=== PATIENT | female | born 1965 | race Caucasian/White ===

== ENCOUNTER 2016-06-11 07:31 | Emergency (ER) | payer OTHER ==
[2016-06-11] MEDS ORDERED: Ondansetron INJ* 2 MG/ML VIAL IV ONE ×2 (08:15→10:34)
[2016-06-11] MEDS ORDERED: Morphine INJ* 4 MG/ML 1 ML CARPUJECT IV ONE ×3 (08:15→14:07)
[2016-06-11] MEDS ORDERED: NS 0.9% 1000 ML* 1,000 ML IV ONE (08:16)
[2016-06-11 08:46] LABS: Hematocrit 43 % (35-47); Hemoglobin 14.7 g/dl (12.0-16.0); Mean Corpuscular HGB Conc 34 g/dl (31-36); Mean Corpuscular Hemoglobin 30 pg (27-31); Mean Corpuscular Volume 88 fL (80-97); Mean Platelet Volume 7 um3 (7.4-10.4); Red Blood Count 4.93 10^6/ul (4.0-5.4); Red Cell Distribution Width 13 % (10.5-15); White Blood Count 15.7 10^3/ul (3.5-10.8)
[2016-06-11 08:56] LABS: Albumin 4.2 g/dL (3.2-5.2); BUN/Creatinine Ratio 14.4 (8-20); C Reactive Protein 38.48 mg/L (< 5.00); Calcium 9.5 mg/dL (8.6-10.3); EGFR African American 84.9 (>60); Globulin 3.4 g/dL (2-4); Potassium 3.3 mmol/L (3.5-5.0); Total Bilirubin 1.6 mg/dL (0.2-1.0); Total Protein 7.6 g/dL (6.4-8.9)
[2016-06-11 09:06] LABS: Urine Bacteria Absent (Absent); Urine Bilirubin Negative (Negative); Urine Glucose Negative (Negative); Urine Nitrite Negative (Negative)
--- NOTE | 2016-06-11 10:54 | RAD ---
HISTORY: Right upper quadrant pain COMPARISONS: October 21, 2014 TECHNIQUE: Multiple transverse and longitudinal ultrasound images were obtained of the right upper quadrant of the abdomen using grayscale and color Doppler imaging. FINDINGS: LIVER: The liver is normal in shape, size, contour, and echogenicity. There are no focal parenchymal masses. There is normal hepatopedal flow of the portal vein on Doppler imaging. BILIARY TREE: There is intrahepatic and extrahepatic biliary dilatation. The common duct measures 1.1 cm. A calculus is noted within the common duct. A biliary stent is noted GALLBLADDER: The gallbladder is distended. Multiple shadowing echogenic foci consistent with gallstones are noted. There is no gallbladder wall thickening or pericholecystic fluid. Positive sonographic Pruett sign is reported.. PANCREAS: The head of the pancreas is unremarkable. The tail of the pancreas is not well visualized secondary to overlying bowel gas. The pancreatic duct measures up to 0.3 cm. RIGHT KIDNEY: The right kidney is normal in shape, size, contour, and echogenicity. There is no hydronephrosis or nephrolithiasis. The right kidney measures 11.2 x 4.1 x 5.7 cm. AORTA AND IVC: The aorta and IVC are unremarkable. FLUID: There are no pleural effusions. There is no free fluid within the hepatorenal recess. OTHER FINDINGS: None. IMPRESSION: 1. BILIARY DILATATION WITH CHOLELITHIASIS AND CHOLEDOCHOLITHIASIS. 2. A SONOGRAPHIC PRUETT SIGN IS REPORTED, WITHOUT GALLBLADDER WALL THICKENING OR PERICHOLECYSTIC FLUID. THIS IS INDETERMINATE FOR THE SONOGRAPHIC FEATURES OF ACUTE CHOLECYSTITIS.
[2016-06-11] MEDS ORDERED: Acetaminophen TAB* 325 MG PO ONE (12:06)
[2016-06-11] MEDS ORDERED: Piperac/Tazob 3.375 gm in NS* 3.375 GM/100 ML BAG IVPB ONE (12:06)
--- NOTE | 2016-06-11 14:02 | ED ---
Lemuel Clements Billy, scribed for Arnaldo Bowen MD on 06/11/16 at 0812 . Abdominal Pain/Female - HPI Summary HPI Summary: Patient is a 50 year-old female coming to [facility] presenting with intermittent epigastric pain starting 3 days ago. Pain severity 7/10. She reports decreased PO intake, nausea, and vomiting. She also had 2x episodes of diarrhea, but she believes this is related to her IBS rather than her chief complaint today. Patient is concerned that her symptoms today are related to her gallbladder. - History of Current Complaint Chief Complaint: EDAbdPain Stated Complaint: VOMITING/ABD PAIN Time Seen by Provider: 06/11/16 07:49 Hx Obtained From: Patient Onset/Duration: Gradual Onset, Lasting Days, Still Present Timing: Intermittent Episode Lasting Severity Initially: Moderate Severity Currently: Moderate Pain Intensity: 7 Pain Scale Used: 0-10 Numeric Location: Epigastric Radiates: No Aggravating Factor(s): Food Alleviating Factor(s): Nothing Associated Signs and Symptoms: Positive: Nausea, Vomiting, Diarrhea Allergies/Adverse Reactions: Allergies Allergy/AdvReac Type Severity Reaction Status Date / Time No Known Allergies Allergy Verified 06/11/16 07:34 PMH/Surg Hx/FS Hx/Imm Hx Endocrine/Hematology History: Reports: Hx Thyroid Disease - hypothyroid d/t partial thyroidectomy Denies: Hx Diabetes Cardiovascular History: Denies: Hx Congestive Heart Failure, Hx Hypertension, Hx Pacemaker/ICD Respiratory History: Reports: Hx Sleep Apnea GI History: Reports: Hx Irritable Bowel, Hx Obstructive Bowel, Other GI Disorders - cholelithiasis Denies: Hx Cirrhosis, Hx Crohn's Disease, Hx Diverticulosis, Hx Gall Bladder Disease, Hx Gastroesophageal Reflux Disease, Hx Gastrointestinal Bleed, Hx Hiatal Hernia, Hx Jaundice, Hx Ileostomy, Hx Pyloric Stenosis, Hx Ulcer History: Denies: Hx Renal Disease Sensory History: Reports: Hx Contacts or Glasses Denies: Hx Cataracts, Hx Eye Injury, Hx Eye Prosthesis, Hx Glaucoma, Hx Legally Blind, Hx Macular Degeneration, Hx Vision Problem, Hx Deafness, Hx Hearing Aid, Hx Hearing Problem, Other Sensory Impairments Opthamlomology History: Reports: Hx Contacts or Glasses Denies: Hx Cataracts, Hx Eye Injury, Hx Eye Prosthesis, Hx Glaucoma, Hx Legally Blind, Hx Macular Degeneration, Hx Vision Problem, Other Sensory Impairments Neurological History: Reports: Hx Migraine Psychiatric History: Reports: Hx Depression Denies: Hx Panic Disorder - Cancer History Cancer Type, Location and Year: GOITER REMOVED 2010 - Surgical History Surgery Procedure, Year, and Place: 1968 inguinal hernia, D&C 1999; thyroidectomy x 2 2009; 2010 exploratory Sx, several abdominal surgeries between 2698-4392--> colon resection Infectious Disease History: No Infectious Disease History: Denies: Hx Clostridium Difficile, Hx Hepatitis, Hx Tuberculosis - Positive PPD, negative chest X-ray, 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, History Other Infectious Disease, Traveled Outside the [place] in Last 30 Days - Family History Known Family History: Positive: Hypertension, Diabetes, Renal Disease - Social History Alcohol Use: Occasionally Substance Use Type: Reports: None Smoking Status (MU): Light Every Day Tobacco Smoker Type: Cigarettes Amount Used/How Often: 1/3 ppd Length of Time of Smoking/Using Tobacco: 10 years Have You Smoked in the Last Year: Yes Review of Systems Negative: Fever Positive: Abdominal Pain, Vomiting, Diarrhea, Nausea All Other Systems Reviewed And Are Negative: Yes Physical Exam Triage Information Reviewed: Yes Vital Signs On Initial Exam: Initial Vitals Temp Pulse Resp BP Pulse Ox 98.7 F 93 17 136/85 100 06/11/16 07:34 06/11/16 07:34 06/11/16 07:34 06/11/16 07:34 06/11/16 07:34 Vital Signs Reviewed: Yes Appearance: Positive: Well-Appearing, No Pain Distress Skin: Positive: Warm, Skin Color Reflects Adequate Perfusion, Dry Head/Face: Positive: Normal Head/Face Inspection Eyes: Positive: Normal Neck: Positive: Supple, Nontender Respiratory/Lung Sounds: Positive: Clear to Auscultation, Breath Sounds Present Cardiovascular: Positive: RRR Abdomen Description: Positive: Soft, Other: - Tender epigastrium Musculoskeletal: Positive: Normal Neurological: Positive: Normal Psychiatric: Positive: Normal, Affect/Mood Appropriate AVPU Assessment: Alert Diagnostics - Vital Signs Vital Signs Temp Pulse Resp BP Pulse Ox 06/11/16 07:34 98.7 F 93 17 136/85 100 - Laboratory Lab Results: Lab Results 06/11/16 06/11/16 06/11/16 Range/Units 07:55 07:55 07:55 WBC 15.7 H (3.5-10.8) 10^3/ul RBC 4.93 (4.0-5.4) 10^6/ul Hgb 14.7 (12.0-16.0) g/dl Hct 43 (35-47) % MCV 88 (80-97) fL MCH 30 (27-31) pg MCHC 34 (31-36) g/dl RDW 13 (10.5-15) % Plt Count 290 (150-450) 10^3/ul MPV 7 L (7.4-10.4) um3 Neut % (Auto) 91.4 H (38-83) % Lymph % (Auto) 3.2 L (25-47) % Mckenzie % (Auto) 5.2 (1-9) % Eos % (Auto) 0 (0-6) % Baso % (Auto) 0.2 (0-2) % Absolute Neuts (auto) 14.4 H (1.5-7.7) 10^3/ul Absolute Lymphs (auto) 0.5 L (1.0-4.8) 10^3/ul Absolute Monos (auto) 0.8 (0-0.8) 10^3/ul Absolute Eos (auto) 0 (0-0.6) 10^3/ul Absolute Basos (auto) 0 (0-0.2) 10^3/ul Absolute Nucleated RBC 0 10^3/ul Nucleated RBC % 0 Sodium 134 (133-145) mmol/L Potassium 3.3 L (3.5-5.0) mmol/L Chloride 103 (101-111) mmol/L Carbon Dioxide 22 (22-32) mmol/L Anion Gap 9 (2-11) mmol/L BUN 13 (6-24) mg/dL Creatinine 0.90 (0.51-0.95) mg/dL Est GFR ( Amer) 84.9 (>60) Est GFR (Non-Af Amer) 66.0 (>60) BUN/Creatinine Ratio 14.4 (8-20) Glucose 106 H (70-100) mg/dL Lactic Acid 0.8 (0.5-2.0) mmol/L Calcium 9.5 (8.6-10.3) mg/dL Total Bilirubin 1.60 H (0.2-1.0) mg/dL AST 159 H (13-39) U/L ALT 93 H (7-52) U/L Alkaline Phosphatase 357 H (34-104) U/L C-Reactive Protein 38.48 H (< 5.00) mg/L Total Protein 7.6 (6.4-8.9) g/dL Albumin 4.2 (3.2-5.2) g/dL Globulin 3.4 (2-4) g/dL Albumin/Globulin Ratio 1.2 (1-3) Lipase 17 (11.0-82.0) U/L Urine Color Urine Appearance Urine pH (5-9) Ur Specific Colliers (1.010-1.030) Urine Protein (Negative) Urine Ketones (Negative) Urine Blood (Negative) Urine Nitrate (Negative) Urine Bilirubin (Negative) Urine Urobilinogen (Negative) Ur Leukocyte Esterase (Negative) Urine WBC (Auto) (Absent) Urine RBC (Auto) (Absent) Ur Squamous Epith Cells (Absent) Urine Bacteria (Absent) Urine Glucose (Negative) 06/11/16 Range/Units 08:36 WBC (3.5-10.8) 10^3/ul RBC (4.0-5.4) 10^6/ul Hgb (12.0-16.0) g/dl Hct (35-47) % MCV (80-97) fL MCH (27-31) pg MCHC (31-36) g/dl RDW (10.5-15) % Plt Count (150-450) 10^3/ul MPV (7.4-10.4) um3 Neut % (Auto) (38-83) % Lymph % (Auto) (25-47) % Mckenzie % (Auto) (1-9) % Eos % (Auto) (0-6) % Baso % (Auto) (0-2) % Absolute Neuts (auto) (1.5-7.7) 10^3/ul Absolute Lymphs (auto) (1.0-4.8) 10^3/ul Absolute Monos (auto) (0-0.8) 10^3/ul Absolute Eos (auto) (0-0.6) 10^3/ul Absolute Basos (auto) (0-0.2) 10^3/ul Absolute Nucleated RBC 10^3/ul Nucleated RBC % Sodium (133-145) mmol/L Potassium (3.5-5.0) mmol/L Chloride (101-111) mmol/L Carbon Dioxide (22-32) mmol/L Anion Gap (2-11) mmol/L BUN (6-24) mg/dL Creatinine (0.51-0.95) mg/dL Est GFR ( Amer) (>60) Est GFR (Non-Af Amer) (>60) BUN/Creatinine Ratio (8-20) Glucose (70-100) mg/dL Lactic Acid (0.5-2.0) mmol/L Calcium (8.6-10.3) mg/dL Total Bilirubin (0.2-1.0) mg/dL AST (13-39) U/L ALT (7-52) U/L Alkaline Phosphatase (34-104) U/L C-Reactive Protein (< 5.00) mg/L Total Protein (6.4-8.9) g/dL Albumin (3.2-5.2) g/dL Globulin (2-4) g/dL Albumin/Globulin Ratio (1-3) Lipase (11.0-82.0) U/L Urine Color Camille Urine Appearance Clear Urine pH 5.0 (5-9) Ur Specific Colliers 1.023 (1.010-1.030) Urine Protein 1+(30 mg/dl) H (Negative) Urine Ketones 1+ H (Negative) Urine Blood 2+ H (Negative) Urine Nitrate Negative (Negative) Urine Bilirubin Negative (Negative) Urine Urobilinogen Positive H (Negative) Ur Leukocyte Esterase Negative (Negative) Urine WBC (Auto) Trace(0-5/hpf) (Absent) Urine RBC (Auto) 2+(6-10/hpf) H (Absent) Ur Squamous Epith Cells Present H (Absent) Urine Bacteria Absent (Absent) Urine Glucose Negative (Negative) Result Diagrams: 06/11/16 07:55 06/11/16 07:55 Lab Statement: Any lab studies that have been ordered have been reviewed, and results considered in the medical decision making process. - Ultrasound No standard instances Ultrasound Interpretation Completed By: Radiologist - GALLBLADDER ULTRASOUND: 1. BILIARY DILATATION WITH CHOLELITHIASIS AND CHOLEDOCHOLITHIASIS. 2. A SONOGRAPHIC HOSKINS SIGN IS REPORTED, WITHOUT GALLBLADDER WALL THICKENING OR PERICHOLECYSTIC FLUID. THIS IS INDETERMINATE FOR THE SONOGRAPHIC FEATURES OF ACUTE CHOLECYSTITIS. Re-Evaluation - Re-Evaluation First Eval Re-Evaluation Time: 12:17 Comment: Plan for transfer reviewed and discussed. Abdominal Pain Fem Course/Dx - Course Course Of Treatment: Leesa Barahona presented to the ED C/O epigastric pain which she said was from her gallbladder. She was afebrile on presentation but developed a fever here. Her labs revealed a leukocytosis, elevated transaminases and hyperbilirubinemia. She was given fluids, Zosyn, and pain medications and GB U/S revealed choledocolithiasis. We have no capability for ERCP at this time so she will be transferred to [facility]. - Diagnoses Provider Diagnoses: Cholangitis - Provider Notifications Discussed Care Of Patient With: Dr. Martinez (surgery) @ 1143: recommended GI consult. Dr. Maciel (GI) @ 1210: recommends transfer for ERCP. Dr. Boone ( [facility]) @ 1240: accepts transfer. 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 - Critical Care Time Critical Care Time: 30-74 min Discharge - Discharge Plan Condition: Stable Disposition: TRANS HIGHER LVL OF CARE FAC Referrals: Bita Gross, ASE CERTIFIED TECHNICIAN [Primary Care Provider] - The documentation as recorded by the Lemuel cannon Billy accurately reflects the service I personally performed and the decisions made by me, Arnaldo Bowen MD.
[2016-06-11] MEDS ORDERED: Ondansetron ODT TAB* 4 MG PO ONE (14:08)
[2016-06-11] MEDS ORDERED: Ondansetron INJ* 2 MG/ML VIAL ONE (14:10)
[2016-06-11 14:28] VITALS: BP 158/80
== END 2016-06-11 15:37 | disposition short-term general hospital (02) ==
LOC: ED 07:31
DX: K80.20 Calculus of gallbladder without cholecystitis without obstruction (principal); R11.2 Nausea with vomiting, unspecified; K81.9 Cholecystitis, unspecified; K83.0 Cholangitis; R19.7 Diarrhea, unspecified; F17.210 Nicotine dependence, cigarettes, uncomplicated
CPT/HCPCS: 36415; 76705; 80053; 81003; 81015; 83605; 83690; 85025; 86140; 96374; 96375; 99284; A9270-GY; J2270; J2405; J2543

== ENCOUNTER 2017-02-21 06:43 | Inpatient (IN) | payer OTHER ==
[2017-02-21] MEDS ORDERED: NS 0.9% 1000 ML* 1,000 ML IV ONE ×2 (07:35→10:37)
[2017-02-21] MEDS ORDERED: Ondansetron ODT TAB* 4 MG PO ONE (07:35)
[2017-02-21 07:53] LABS: Hematocrit 44 % (35-47); Hemoglobin 15.2 g/dl (12.0-16.0); Mean Corpuscular HGB Conc 34 g/dl (31-36); Mean Corpuscular Hemoglobin 30 pg (27-31); Mean Corpuscular Volume 89 fL (80-97); Mean Platelet Volume 7 um3 (7.4-10.4); Red Cell Distribution Width 13 % (10.5-15); White Blood Count 11.9 10^3/ul (3.5-10.8)
[2017-02-21 08:09] LABS: Albumin 4.3 g/dL (3.2-5.2); BUN/Creatinine Ratio 17.6 (8-20); C Reactive Protein 23.08 mg/L (< 5.00); Calcium 9.9 mg/dL (8.6-10.3); EGFR African American 73.2 (>60); EGFR Non-African American 56.9 (>60); Globulin 3.1 g/dL (2-4); Potassium 3.2 mmol/L (3.5-5.0); Total Bilirubin 2.5 mg/dL (0.2-1.0); Total Protein 7.4 g/dL (6.4-8.9)
--- NOTE | 2017-02-21 08:46 | RAD ---
HISTORY: Right upper quadrant pain COMPARISONS: June 11, 2016 TECHNIQUE: Multiple transverse and longitudinal ultrasound images were obtained of the right upper quadrant of the abdomen using grayscale and color Doppler imaging. FINDINGS: The study is somewhat technically limited. LIVER: The liver is normal in shape, size, contour, and echogenicity. There are no focal parenchymal masses. There is normal hepatopedal flow of the portal vein on Doppler imaging. BILIARY TREE: A common duct stent is noted. Multiple stones are noted within the common duct. The common duct measures 1.2 cm. GALLBLADDER: The gallbladder is distended. Multiple shadowing echogenic foci consistent with gallstones are noted. There is no gallbladder wall thickening, pericholecystic fluid, or sonographic Pruett sign. PANCREAS: The head of the pancreas is unremarkable. The tail of the pancreas is not well visualized secondary to overlying bowel gas. The pancreatic duct is mildly prominent but measures less than 0.3 cm in caliber. RIGHT KIDNEY: The right kidney is normal in shape, size, contour, and echogenicity. There is no hydronephrosis or nephrolithiasis. The right kidney measures 10.3 x 4.6 x 4.7 cm. AORTA AND IVC: The aorta and IVC are unremarkable. FLUID: There are no pleural effusions. There is no free fluid within the hepatorenal recess. OTHER FINDINGS: None. IMPRESSION: CHOLELITHIASIS AND CHOLEDOCHOLITHIASIS. A COMMON DUCT STENT IS NOTED.
[2017-02-21 10:16] LABS: Urine Bacteria Absent (Absent); Urine Bilirubin Negative (Negative); Urine Glucose Negative (Negative); Urine Nitrite Negative (Negative)
[2017-02-21] MEDS ORDERED: Morphine INJ* 4 MG/ML 1 ML CARPUJECT IV ONE (10:37)
[2017-02-21] MEDS ORDERED: Acetaminophen TAB* 325 MG PO PRN (11:00)
[2017-02-21] MEDS ORDERED: NS 0.9% 1000 ML* 1,000 ML IV SCH (11:15)
[2017-02-21] MEDS ORDERED: Levothyroxine TAB* 88 MCG TAB PO SCH (13:00)
[2017-02-21] MEDS: Morphine INJ* 4 MG/ML 1 ML CARPUJECT IV PRN ×3 (13:54→21:08)
[2017-02-21] MEDS: Heparin VIAL(*) 5000 UNITS/ML VIAL (FIVE THOUSAND) SUBCUT SCH ×2 (13:56→21:09)
--- NOTE | 2017-02-21 17:58 | PN ---
Progress Note - Progress Note Date of Service: 02/21/17 Note: Brief Surgery Note: (full consult dictated) Patient also seen by Dr. Stoddard. 51 yo female well known to our office from prior surgeries and consults, with known cholelithiasis and choledocholithiasis , presented to the ED w/ epigastric abd pain since last night, w/ assoc vomiting and chills as well as dark urine. She had undergone previous ERCP w/ sphincterotomy and stent placement by Dr. Conway in 03/2015, then referred for "Spy glass lithotripsy" in [place] which she was unable to pursue 2/2 insurance issues. She had a similar presentation in 05/2016 and was transferred to [place] where an attempted ERCP was halted 2/2 purulent drainage from the stent. PE: afeb; VSS Gen: WN in NAD Heart: reg Lungs: clear Abd: +BS; multiple surgical scars including midline from prior dehiscence with secondary closure; soft; moderate tenderness mid epigastrium; mild tenderness RUQ; neg Pruett's sign. Remainder soft, nontender. Labs: WBC 11.9 w/ L shift; Total bili 2.5; AST 496; ALT 156; Alk phos 261; CRP 23; lipase nl. US: mult GS, both in GB and CBD; stent present in CBD; no acute changes of the GB; CBD 1.2 cm Imp: choledocholithiasis w/ acute cholangitis P: admit for IVF, NPO, abx; may need tx to [place] for CBD intervention and subsequent cholecystectomy. Will follow.
[2017-02-21] MEDS: NS 0.9% w/ 20 Meq KCL 1000 ML* 1,000 ML IV SCH (18:18)
--- NOTE | 2017-02-21 18:45 | ED ---
Denice Clements Thomas, scribed for Daniel Saldana MD on 02/21/17 at 0723 . Abdominal Pain/Female - HPI Summary HPI Summary: The pt is a 51 y/o F presenting to the ED c/o abd pain that began two hours ago. Two years ago, the patient was diagnosed with gallstones and she says her current pain is similar to past episodes of gallbladder pain. The patient reports she was instructed to schedule a cholecystectomy but she has not been able to take time off from work for this. The pain is constant. The pain is rated 8/10. The pain is aggravated by nothing and is alleviated by nothing. 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 Pt additionally c/o nausea and vomiting. Pt denies constipation and vomiting. She has been passing flatus as per normal. She has multiple unspecified abdominal surgeries with visible scars. - History of Current Complaint Chief Complaint: EDAbdPain Stated Complaint: POSS GALL BLADDER ATTACK Hx Obtained From: Patient Onset/Duration: Lasting Hours - onset two hours ago, Still Present Timing: Constant Pain Intensity: 8 Pain Scale Used: 0-10 Numeric Character: Other: - similar to previous gallbladder pain Aggravating Factor(s): Nothing Alleviating Factor(s): Nothing Associated Signs and Symptoms: Positive: Nausea, Vomiting. Negative: Constipation, Diarrhea Simlar Episode/Dx as:: Prior gallbladder pains Allergies/Adverse Reactions: Allergies Allergy/AdvReac Type Severity Reaction Status Date / Time No Known Allergies Allergy Verified 02/21/17 07:31 Home Medications: Home Medications Ibuprofen TAB* [Advil TAB*] 200 mg PO Q6H PRN 02/21/17 [History Confirmed ] Levothyroxine TAB* [Synthroid TAB*] 175 mcg PO DAILY 02/21/17 [History Confirmed 02/21/17] PMH/Surg Hx/FS Hx/Imm Hx Previously Healthy: No Endocrine/Hematology History: Reports: Hx Thyroid Disease - hypothyroid d/t partial thyroidectomy Denies: Hx Diabetes Cardiovascular History: Denies: Hx Congestive Heart Failure, Hx Hypertension, Hx Pacemaker/ICD Respiratory History: Reports: Hx Sleep Apnea GI History: Reports: Hx Irritable Bowel, Hx Obstructive Bowel, Other GI Disorders - cholelithiasis Denies: Hx Cirrhosis, Hx Crohn's Disease, Hx Diverticulosis, Hx Gall Bladder Disease, Hx Gastroesophageal Reflux Disease, Hx Gastrointestinal Bleed, Hx Hiatal Hernia, Hx Jaundice, Hx Ileostomy, Hx Pyloric Stenosis, Hx Ulcer History: Denies: Hx Renal Disease Sensory History: Reports: Hx Contacts or Glasses Denies: Hx Cataracts, Hx Eye Injury, Hx Eye Prosthesis, Hx Glaucoma, Hx Legally Blind, Hx Macular Degeneration, Hx Vision Problem, Hx Deafness, Hx Hearing Aid, Hx Hearing Problem, Other Sensory Impairments Opthamlomology History: Reports: Hx Contacts or Glasses Denies: Hx Cataracts, Hx Eye Injury, Hx Eye Prosthesis, Hx Glaucoma, Hx Legally Blind, Hx Macular Degeneration, Hx Vision Problem, Other Sensory Impairments Neurological History: Reports: Hx Migraine Psychiatric History: Reports: Hx Depression Denies: Hx Panic Disorder - Cancer History Cancer Type, Location and Year: GOITER REMOVED 2010 - Surgical History Surgery Procedure, Year, and Place: 1968 inguinal hernia, D&C 1999; thyroidectomy x 2 2009; 2010 exploratory Sx, several abdominal surgeries between [id number]--> colon resection Infectious Disease History: No Infectious Disease History: Denies: Hx Clostridium Difficile, Hx Hepatitis, Hx Tuberculosis - Positive PPD, negative chest X-ray, 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 Negative: Diarrhea, Other - NEGATIVE: constipation All Other Systems Reviewed And Are Negative: Yes Physical Exam - Summary Physical Exam Summary: VITAL SIGNS: Reviewed. GENERAL: Patient is a well-developed and nourished female who is lying comfortable in the stretcher. Patient is not in any acute respiratory distress. HEAD AND FACE: Normocephalic and atraumatic. EYES: PERRLA, EOMI x 2, No injected conjunctiva. EARS: Hearing grossly intact. Ear canals and tympanic membranes are WNL. MOUTH: Oropharynx within normal limits. Dry mucous membranes. NECK: Supple, trachea is midline, no adenopathy, no JVD. CHEST: Symmetric, no tenderness at palpation LUNGS: Clear to auscultation bilaterally. No wheezing or crackles. CVS: RRR, S1 and S2 present, no murmurs or gallops appreciated. ABDOMEN: She has RUQ tenderness. There is a scar in the mid abdomen secondary to multiple surgeries that is well-healed. Soft. No signs of distention. Positive bowel sounds. No rebound no guarding, and no masses palpated. No abdominal bruit or pulsations. EXTREMITIES: FROM in all major joints, no edema, no cyanosis or clubbing. NEURO: Alert and oriented x 3. No acute neurological deficits. Speech is normal. SKIN: Dry and warm Triage Information Reviewed: Yes Vital Signs On Initial Exam: Initial Vitals Temp Pulse Resp BP Pulse Ox 98.9 F 81 16 132/79 99 02/21/17 07:00 02/21/17 07:00 02/21/17 07:00 02/21/17 07:00 02/21/17 07:00 Vital Signs Reviewed: Yes Diagnostics - Vital Signs Vital Signs Temp Pulse Resp BP Pulse Ox 02/21/17 07:00 98.9 F 81 16 132/79 99 - Laboratory Lab Results: Lab Results 02/21/17 02/21/17 02/21/17 Range/Units 07:35 07:35 09:49 WBC 11.9 H (3.5-10.8) 10^3/ul RBC 5.00 (4.0-5.4) 10^6/ul Hgb 15.2 (12.0-16.0) g/dl Hct 44 (35-47) % MCV 89 (80-97) fL MCH 30 (27-31) pg MCHC 34 (31-36) g/dl RDW 13 (10.5-15) % Plt Count 301 (150-450) 10^3/ul MPV 7 L (7.4-10.4) um3 Neut % (Auto) 88.3 H (38-83) % Lymph % (Auto) 5.5 L (25-47) % [place] % (Auto) 5.7 (1-9) % Eos % (Auto) 0.2 (0-6) % Baso % (Auto) 0.3 (0-2) % Absolute Neuts (auto) 10.6 H (1.5-7.7) 10^3/ul Absolute Lymphs (auto) 0.7 L (1.0-4.8) 10^3/ul Absolute Monos (auto) 0.7 (0-0.8) 10^3/ul Absolute Eos (auto) 0 (0-0.6) 10^3/ul Absolute Basos (auto) 0 (0-0.2) 10^3/ul Absolute Nucleated RBC 0 10^3/ul Nucleated RBC % 0 Sodium 140 (133-145) mmol/L Potassium 3.2 L (3.5-5.0) mmol/L Chloride 104 (101-111) mmol/L Carbon Dioxide 28 (22-32) mmol/L Anion Gap 8 (2-11) mmol/L BUN 18 (6-24) mg/dL Creatinine 1.02 H (0.51-0.95) mg/dL Est GFR ( Amer) 73.2 (>60) Est GFR (Non-Af Amer) 56.9 (>60) BUN/Creatinine Ratio 17.6 (8-20) Glucose 107 H (70-100) mg/dL Calcium 9.9 (8.6-10.3) mg/dL Total Bilirubin 2.50 H (0.2-1.0) mg/dL AST 496 H (13-39) U/L ALT 156 H (7-52) U/L Alkaline Phosphatase 261 H (34-104) U/L C-Reactive Protein 23.08 H (< 5.00) mg/L Total Protein 7.4 (6.4-8.9) g/dL Albumin 4.3 (3.2-5.2) g/dL Globulin 3.1 (2-4) g/dL Albumin/Globulin Ratio 1.4 (1-3) Lipase 31 (11.0-82.0) U/L Urine Color Camille Urine Appearance Clear Urine pH 7.0 (5-9) Ur Specific [place] 1.017 (1.010-1.030) Urine Protein Negative (Negative) Urine Ketones Trace H (Negative) Urine Blood 1+ H (Negative) Urine Nitrate Negative (Negative) Urine Bilirubin Negative (Negative) Urine Urobilinogen Positive H (Negative) Ur Leukocyte Esterase Trace H (Negative) Urine WBC (Auto) Trace(0-5/hpf) (Absent) Urine RBC (Auto) Trace(0-2/hpf) (Absent) Ur Squamous Epith Cells Present H (Absent) Urine Bacteria Absent (Absent) Urine Glucose Negative (Negative) Result Diagrams: 02/21/17 07:35 02/21/17 07:35 Lab Statement: Any lab studies that have been ordered have been reviewed, and results considered in the medical decision making process. - EKG 08:36 Cardiac Rate: NL - 65 BPM EKG Rhythm: Sinus Rhythm EKG Interpretation: TWI in V4-V6. - Additional Comments Diagnostic Additional Comments: US Gallbladder. Interpreted by radiologist. Impression: CHOLELITHIASIS AND CHOLEDOCHOLITHIASIS. A COMMON DUCT STENT IS NOTED. ED physician has read this report and agrees. Abdominal Pain Fem Course/Dx - Course Course Of Treatment: The pt is a 51 y/o F presenting to the ED c/o abd pain that began two hours ago. Two years ago, the patient was diagnosed with gallstones and she says her current pain is similar to past episodes of gallbladder pain. The patient reports she was instructed to schedule a cholecystectomy but she has not been able to take time off from work for this. The pain is constant. The pain is rated 8/10. The pain is aggravated by nothing and is alleviated by nothing. 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 Pt additionally c/o nausea and vomiting. Pt denies constipation and vomiting. She has been passing flatus as per normal. She has multiple unspecified abdominal surgeries with visible scars. Test results show and increased WBC of 11.9, potassium 3.2, bilirubin of 2.5, AST 496, ALT 156, and CRP 23.08. UA is positive for urobilinogen. Right upper quadrant ultrasound shows CHOLELITHIASIS AND CHOLEDOCHOLITHIASIS. A COMMON DUCT STENT IS NOTED. In the ED course, the patient was given IV fluids, morphine for the pain, and started on Zosyn because I believe the patient may be developing cholangitis. At this point, I discussed the case with Mr. Madison who is a PA for Dr. Stoddard. He recommends further admission to the hospitalists and Dr. Stoddard will continue to follow up. Therefore, I discussed the case with Dr. Bradford, hospitalist, who admits the patient to [facility]. The patient is hemodynamically stable and alert and oriented x 3. - Diagnoses Differential Diagnosis: Positive: Constipation, Gall Bladder Disease, Hepatitis Provider Diagnoses: Cholangitis - Provider Notifications Discussed Care Of Patient With: Carlos Alberto Bradford Time Discussed With Above Provider: 10:37 Instructed by Provider To: Other - I consulted with Dr. Bradford, hospitalist, who admits the patient to [facility]. I also consulted with Dr. Jason Madison, surgery, who recommends admission to [facility]. Discharge - Discharge Plan Condition: Fair Disposition: ADMITTED TO Health system documentation as recorded by the Denice cannon Thomas accurately reflects the service I personally performed and the decisions made by me, Daniel Saldana MD.
[2017-02-21] MEDS: Ondansetron INJ* 2 MG/ML VIAL IV PRN (21:10)
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
[2017-02-22] MEDS: NS 0.9% w/ 20 Meq KCL 1000 ML* 1,000 ML IV SCH (04:45)
[2017-02-22 05:27] LABS: Albumin 3.5 g/dL (3.2-5.2); BUN/Creatinine Ratio 12.2 (8-20); Calcium 8.9 mg/dL (8.6-10.3); Direct Bilirubin 3.8 mg/dL (0.03-0.18); EGFR African American 84.6 (>60); EGFR Non-African American 65.8 (>60); Globulin 2.5 g/dL (2-4); Indirect Bilirubin 1.2 mg/dL (0.3-1.0); Potassium 3.9 mmol/L (3.5-5.0)
[2017-02-22] MEDS: Morphine INJ* 4 MG/ML 1 ML CARPUJECT IV PRN ×3 (05:32→15:44)
[2017-02-22] MEDS: Heparin VIAL(*) 5000 UNITS/ML VIAL (FIVE THOUSAND) SUBCUT SCH ×2 (05:32→14:20)
[2017-02-22] MEDS ORDERED: Levothyroxine TAB* 175 MCG TAB PO SCH (06:00)
[2017-02-22] MEDS: Ondansetron INJ* 2 MG/ML VIAL IV PRN ×2 (06:18→10:31)
[2017-02-22] MEDS ORDERED: Metoclopramide IV* 5 MG/ML 2 ML VIAL IV PRN (08:53)
[2017-02-22] MEDS ORDERED: Metoclopramide IV* 5 MG/ML 2 ML VIAL ONE (08:53)
[2017-02-22] MEDS ORDERED: PROCHLORPERAZINE INJ 5 MG/ML 2 ML VIAL IV PRN (08:53)
[2017-02-22] MEDS ORDERED: Sertraline* 100 MG TAB PO SCH (09:00)
[2017-02-22] MEDS ORDERED: buPROPion TAB* 75 MG PO SCH (09:00)
--- NOTE | 2017-02-22 09:53 | SURGPN ---
Subjective - Introduction -: Admitted on: 02/21/2017 Reports doing about the same. C/o intermittent epigastric pain, relived with Morphine. Denies nausea or vomiting. No fever or chills. - Medications -: Active Medications Generic Name Dose Route Start Last Admin Trade Name Freq PRN Reason Stop Dose Admin Acetaminophen 650 mg 02/21/17 11:00 02/22/17 00:37 Tylenol Tab* PO 650 mg Q4H PRN Administration FEVER/PAIN Bupropion HCl 75 mg 02/22/17 09:00 02/22/17 08:13 Wellbutrin Tab* PO 75 mg DAILY DWAYNE Administration Heparin Sodium (Porcine) 5,000 units 02/21/17 14:00 02/22/17 05:32 Heparin Vial(*) SUBCUT 5,000 units Q8HR DWAYNE Administration Piperacillin Sod/Tazobactam 100 mls @ 25 mls/hr 02/21/17 16:00 02/22/17 08:10 Sod 3.375 gm/ Sodium Chloride IVPB 25 mls/hr Q8H DWAYNE Administration Potassium Chloride/Sodium Chloride 1,000 mls @ 100 mls/hr 02/21/17 18:00 04:45 Ns 0.9% W/ 20 Meq Kcl 1000 Ml* IV 100 mls/hr PER RATE DWAYNE Administration Levothyroxine Sodium 175 mcg 02/22/17 06:00 02/22/17 05:32 Synthroid Tab* PO 175 mcg 0600 DWAYNE Administration Metoclopramide HCl 5 mg 02/22/17 08:53 Reglan Iv* IV Q6H PRN NAUSEA/VOMITING Morphine Sulfate 4 mg 02/21/17 12:48 02/22/17 05:32 Morphine Inj (Syringe)* IV 4 mg Q2H PRN Administration PAIN Ondansetron HCl 4 mg 02/21/17 11:00 02/22/17 06:18 Zofran Inj* IV 4 mg Q4H PRN Administration NAUSEA Prochlorperazine Edisylate 10 mg 02/22/17 08:53 Compazine Inj* IV Q6H PRN NAUSEA/VOMITING Sertraline HCl 100 mg 02/22/17 09:00 02/22/17 08:13 Zoloft* PO 100 mg DAILY DWAYNE Administration Objective - Objective -: Awake and alert, comfortable in bed, in NAD. - Intake and Output -: Intake & Output 02/20/17 02/21/17 02/22/17 02/23/17 06:59 06:59 06:59 06:59 Intake Total 3161 0 Output Total 900 Balance 2261 0 Weight 170 lb Intake: IV Fluids 2836 ABX - ZOSYN 220 NS (0.9%) 1167 NS (0.9%) 20 meq KCL 1349 IVPB 100 NS (0.9%) 100 Oral 225 0 Output: Urine 900 Surgical Physical Exam - Comments -: VSS, afebrile, Tmax 98.9 Lungs CTA bilat. Heart RRR, no murmurs Abdomen soft and non-distended. Moderate epigastric tenderness. No guarding or rigidity. Labs noted, total bili up to 5.0 Assessment and Plan - Assessment -: A 51 y/o female with acute cholengitis, billiary obstruction with stent in place at CBD, clinically stable - Plan Additional Comments: Discussed with patient exam and labs She is aware of her medical condition, considering transfer to [place] for "spy glass ERCP" per patient Discussed possible surgical intervention at some point, preferably once her LFTs return back to normal. Will discuss with Dr. Stoddard
--- NOTE | 2017-02-22 11:31 | PN ---
Subjective Date of Service: 02/22/17 Interval History: Pt is feeling ok. She states she had one episode of severe epigastric pain this AM but otherwise her pain has been about 7/10. She has had quite a bit of nausea but better after adding additional agents. Objective Active Medications: Acetaminophen (Tylenol Tab*) 650 mg PO Q4H PRN PRN Reason: FEVER/PAIN Last Admin: 02/22/17 00:37 Dose: 650 mg Bupropion HCl (Wellbutrin Tab*) 75 mg PO DAILY [facility] Last Admin: 02/22/17 08:13 Dose: 75 mg Heparin Sodium (Porcine) (Heparin Vial(*)) 5,000 units SUBCUT Q8HR [facility] Last Admin: 02/22/17 05:32 Dose: 5,000 units Piperacillin Sod/Tazobactam (Sod 3.375 gm/ Sodium Chloride) 100 mls @ 25 mls/ hr IVPB Q8H [facility] Last Admin: 02/22/17 08:10 Dose: 25 mls/hr Potassium Chloride/Sodium Chloride (Ns 0.9% W/ 20 Meq Kcl 1000 Ml*) 1,000 mls @ 100 mls/hr IV PER RATE [facility] Last Admin: 02/22/17 04:45 Dose: 100 mls/hr Levothyroxine Sodium (Synthroid Tab*) 175 mcg PO 0600 [facility] Last Admin: 02/22/17 05:32 Dose: 175 mcg Metoclopramide HCl (Reglan Iv*) 5 mg IV Q6H PRN PRN Reason: NAUSEA/VOMITING Morphine Sulfate (Morphine Inj (Syringe)*) 4 mg IV Q2H PRN PRN Reason: PAIN Last Admin: 02/22/17 09:48 Dose: 4 mg Ondansetron HCl (Zofran Inj*) 4 mg IV Q4H PRN PRN Reason: NAUSEA Last Admin: 02/22/17 10:31 Dose: 4 mg Prochlorperazine Edisylate (Compazine Inj*) 10 mg IV Q6H PRN PRN Reason: NAUSEA/VOMITING Sertraline HCl (Zoloft*) 100 mg PO DAILY [facility] Last Admin: 02/22/17 08:13 Dose: 100 mg Vital Signs 02/21/17 02/21/17 02/21/17 11:30 11:32 12:23 Temperature 98.8 F Pulse Rate 72 75 73 Respiratory 18 16 Rate Blood Pressure 155/93 142/93 147/85 (mmHg) O2 Sat by Pulse 96 97 99 Oximetry 02/21/17 02/21/17 02/21/17 13:54 14:17 14:35 Temperature Pulse Rate Respiratory 16 16 16 Rate Blood Pressure (mmHg) O2 Sat by Pulse Oximetry 02/21/17 02/21/17 02/21/17 14:54 15:44 16:23 Temperature 97.1 F Pulse Rate 51 Respiratory 16 16 Rate Blood Pressure 186/98 167/105 (mmHg) O2 Sat by Pulse 100 Oximetry 02/21/17 02/21/17 02/21/17 18:23 19:23 19:39 Temperature 98.4 F Pulse Rate 66 Respiratory 16 16 16 Rate Blood Pressure 150/80 (mmHg) O2 Sat by Pulse 97 Oximetry 02/21/17 02/21/17 02/21/17 21:08 21:56 22:20 Temperature Pulse Rate Respiratory 16 14 16 Rate Blood Pressure (mmHg) O2 Sat by Pulse Oximetry 02/21/17 02/21/17 02/22/17 23:27 23:50 00:33 Temperature 98.3 F Pulse Rate 61 51 Respiratory 16 Rate Blood Pressure 149/111 137/106 145/98 (mmHg) O2 Sat by Pulse 95 Oximetry 02/22/17 02/22/17 02/22/17 03:24 05:32 06:24 Temperature 98.2 F Pulse Rate 59 Respiratory 14 16 16 Rate Blood Pressure 149/96 (mmHg) O2 Sat by Pulse 98 Oximetry 02/22/17 02/22/17 02/22/17 07:32 08:00 09:48 Temperature 98.4 F Pulse Rate 67 Respiratory 17 18 18 Rate Blood Pressure 149/79 (mmHg) O2 Sat by Pulse 99 Oximetry 02/22/17 10:48 Temperature Pulse Rate Respiratory 18 Rate Blood Pressure (mmHg) O2 Sat by Pulse Oximetry Oxygen Devices in Use Now: None Appearance: Middle aged female lying in bed sleeping, awakens to voice, NAD Eyes: No Scleral Icterus Ears/Nose/Mouth/Throat: Mucous Membranes Moist Respiratory: Symmetrical Chest Expansion and Respiratory Effort, Clear to Auscultation Cardiovascular: NL Sounds; No Murmurs; No JVD, RRR, No Edema Abdominal: - - BS+ soft, ND, mildly tender in the epigastrum Extremities: No Clubbing, Cyanosis Skin: No Rash or Ulcers, No Nodules or Sclerosis Neurological: Alert and Oriented x 3 Result Diagrams: 02/21/17 07:35 02/22/17 05:04 Additional Lab and Data: Lab Results 02/21/17 02/21/17 02/21/17 Range/Units 07:35 07:35 09:49 WBC 11.9 H (3.5-10.8) 10^3/ul RBC 5.00 (4.0-5.4) 10^6/ul Hgb 15.2 (12.0-16.0) g/dl Hct 44 (35-47) % MCV 89 (80-97) fL MCH 30 (27-31) pg MCHC 34 (31-36) g/dl RDW 13 (10.5-15) % Plt Count 301 (150-450) 10^3/ul MPV 7 L (7.4-10.4) um3 Neut % (Auto) 88.3 H (38-83) % Lymph % (Auto) 5.5 L (25-47) % [place] % (Auto) 5.7 (1-9) % Eos % (Auto) 0.2 (0-6) % Baso % (Auto) 0.3 (0-2) % Absolute Neuts (auto) 10.6 H (1.5-7.7) 10^3/ul Absolute Lymphs (auto) 0.7 L (1.0-4.8) 10^3/ul Absolute Monos (auto) 0.7 (0-0.8) 10^3/ul Absolute Eos (auto) 0 (0-0.6) 10^3/ul Absolute Basos (auto) 0 (0-0.2) 10^3/ul Absolute Nucleated RBC 0 10^3/ul Nucleated RBC % 0 Sodium 140 (133-145) mmol/L Potassium 3.2 L (3.5-5.0) mmol/L Chloride 104 (101-111) mmol/L Carbon Dioxide 28 (22-32) mmol/L Anion Gap 8 (2-11) mmol/L BUN 18 (6-24) mg/dL Creatinine 1.02 H (0.51-0.95) mg/dL Est GFR ( Amer) 73.2 (>60) Est GFR (Non-Af Amer) 56.9 (>60) BUN/Creatinine Ratio 17.6 (8-20) Glucose 107 H (70-100) mg/dL Calcium 9.9 (8.6-10.3) mg/dL Total Bilirubin 2.50 H (0.2-1.0) mg/dL AST 496 H (13-39) U/L ALT 156 H (7-52) U/L Alkaline Phosphatase 261 H (34-104) U/L C-Reactive Protein 23.08 H (< 5.00) mg/L Total Protein 7.4 (6.4-8.9) g/dL Albumin 4.3 (3.2-5.2) g/dL Globulin 3.1 (2-4) g/dL Albumin/Globulin Ratio 1.4 (1-3) Lipase 31 (11.0-82.0) U/L Urine Color [place] Urine Appearance Clear Urine pH 7.0 (5-9) Ur Specific [place] 1.017 (1.010-1.030) Urine Protein Negative (Negative) Urine Ketones Trace H (Negative) Urine Blood 1+ H (Negative) Urine Nitrate Negative (Negative) Urine Bilirubin Negative (Negative) Urine Urobilinogen Positive H (Negative) Ur Leukocyte Esterase Trace H (Negative) Urine WBC (Auto) Trace(0-5/hpf) (Absent) Urine RBC (Auto) Trace(0-2/hpf) (Absent) Ur Squamous Epith Cells Present H (Absent) Urine Bacteria Absent (Absent) Urine Glucose Negative (Negative) Assess/Plan/Problems-Billing Ms Barahona is a 51 yo F who has a h/o CBD stones and need for spy glass lithotripsy, depression and hypothyroidism who presented to the ER with c/o epigastric pain and dark urine and was admitted for acute cholangitis with choledocolithiasis. - Patient Problems (1) Cholangitis due to bile duct calculus with obstruction Current Visit: Yes Status: Acute Code(s): K80.31 - CALCULUS OF BILE DUCT W CHOLANGITIS, UNSP, WITH OBSTRUCTION SNOMED Code(s): 6481446450910437 Comment: The patient has had cholangitis in the past. She currently has a CBD stent in place with stones within the stent. Her bilirubin has trended up today. She remain afebrile. No follow up WBC count obtained this AM. I am concerned that she will need an ERCP sooner rather than later. Will continue zosyn for now. The patient has previously been told she needs an ERCP with spy glass lithotripsy. Will work on transferring the patient to [facility] for advanced ERCP care. (2) Hypothyroidism Current Visit: Yes Status: Acute Code(s): E03.9 - HYPOTHYROIDISM, UNSPECIFIED SNOMED Code(s): 96276055 Comment: Continue current dose of synthroid for post thyroidectomy hypothyroidism. (3) Depression Current Visit: Yes Status: Acute Code(s): F32.9 - MAJOR DEPRESSIVE DISORDER , SINGLE EPISODE, UNSPECIFIED SNOMED Code(s): 68093843 Comment: Continue zoloft and wellbutrin. (4) DVT prophylaxis Current Visit: Yes Status: Acute Code(s): NKD5073 - SNOMED Code(s): 254654174 Comment: SQ heparin (5) Full code status Current Visit: Yes Status: Acute Code(s): Z78.9 - OTHER SPECIFIED HEALTH STATUS SNOMED Code(s): 252542782
[2017-02-22 12:29] VITALS: BP 162/79
[2017-02-22 13:55] LABS: Hematocrit 43 % (35-47); Hemoglobin 14.4 g/dl (12.0-16.0); Mean Corpuscular HGB Conc 33 g/dl (31-36); Mean Corpuscular Hemoglobin 30 pg (27-31); Mean Corpuscular Volume 90 fL (80-97); Mean Platelet Volume 7 um3 (7.4-10.4); Red Blood Count 4.79 10^6/ul (4.0-5.4); Red Cell Distribution Width 14 % (10.5-15); White Blood Count 8.3 10^3/ul (3.5-10.8)
--- NOTE | 2017-02-23 01:58 | TRS ---
CC: Bita Gross NP * TRANSFER SUMMARY: DATE OF ADMISSION: 02/21/17 DATE OF TRANSFER: To [facility], 02/22/17. PRIMARY CARE PROVIDER: Bita Gross NP PRINCIPAL DIAGNOSIS: Cholangitis with common bile duct stent and stones noted within the stent. SECONDARY DIAGNOSES: 1. Depression. 2. Hypothyroidism (status post thyroidectomy). 3. Irritable bowel syndrome. 4. History of carcinoid tumor. DISCHARGE MEDICATIONS: 1. Tylenol 650 mg p.o. q.4 hours p.r.n. pain. 2. Wellbutrin 75 mg p.o. daily. 3. Heparin 5000 units subcutaneous q.8 hours. 4. Synthroid 175 mcg p.o. daily. 5. Reglan 5 mg IV q.6 hours p.r.n. nausea. 6. Morphine 4 mg IV q.2 hours p.r.n. pain. 7. Zofran 4 mg IV q.4 hours p.r.n. nausea. 8. Zosyn 3.375 g IV q.8 hours. 9. Normal saline at 100 mL per hour. 10. Compazine 10 mg IV q.6 hours p.r.n. nausea. 11. Sertraline 100 mg p.o. daily. HOSPITAL COURSE: Ms. Barahona is a 51-year-old female, who has had a longstanding issue with cholelithiasis, choledocholithiasis and a past history of cholangitis , who presents to the emergency room with complaints of severe epigastric pain and noting that her urine was dark. The patient states that last time this happened she felt was a gallbladder attack. The patient did have a common bile duct stent placed in I believe May of 2016. She was supposed to return to have this removed and then have ERCP with SpyGlass lithotripsy performed; however, the patient lost her insurance and did not return for this procedure. The patient states that she now has insurance again. She was going to be calling her component inspector to have this setup; however, in the meantime developed these symptoms. The patient ultimately was admitted on 02/21/17 for acute cholangitis. The patient has been afebrile; however, her white blood cell count is mildly elevated at 11.9. On admission, the patient's bilirubin was 2.5 , AST 496, and ALT 156. The patient was hydrated overnight and despite this her bilirubin is now up to 5.0. Her AST remaining at 429 and ALT at 251. At this point, I am concerned that the patient will need a more urgent ERCP and perhaps more advanced procedure than what is able to be performed at [facility]. I contacted [facility] for transfer. I did speak with Dr. 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 He is able to perform the necessary procedure and between Dr. Keenan and Dr. Capone, the patient has kindly been accepted in transfer. At this point, the patient is hemodynamically stable. She remains on Zosyn. Blood cultures were now ordered at the time of admission; however, that has been ordered for now as has a followup white blood cell count. If the blood cultures come up positive, I will contact [facility] with results of the cultured data. FOLLOWUP CONCERNS: The patient is being transferred to [facility], today 02/22/17. ACTIVITY LEVEL: As tolerated. DIET: N.p.o. CONDITION ON TRANSFER: Stable. TIME SPENT: Fifty minutes was spent on this transfer. [id number]/[facility] #: [id number] [facility]
== END 2017-02-22 15:40 | disposition short-term general hospital (02) ==
LOC: ED 06:43 → SSU 11:04
PROVIDERS: ADMIT Internal Medicine; ATTEND Hospitalist
DX: K80.31 Calculus of bile duct with cholangitis, unspecified, with obstruction (principal); E89.0 Postprocedural hypothyroidism; F32.9 Major depressive disorder, single episode, unspecified; K58.9 Irritable bowel syndrome, unspecified; Z79.01 Long term (current) use of anticoagulants; Z85.850 Personal history of malignant neoplasm of thyroid; Z83.3 Family history of diabetes mellitus; Z82.49 Family history of ischemic heart disease and other diseases of the circulatory system; Z83.6 Family history of other diseases of the respiratory system; F17.210 Nicotine dependence, cigarettes, uncomplicated; G47.30 Sleep apnea, unspecified; Z84.1 Family history of disorders of kidney and ureter; K80.71 Calculus of gallbladder and bile duct without cholecystitis with obstruction
CPT/HCPCS: 36415; 76705; 80048; 80053; 80076; 81003; 81015; 83690; 85025; 86140; 87040; 87086; 93005; A9270-GY; J0780; J1644; J2270; J2405; J2543; J2765

== ENCOUNTER 2017-09-21 14:28 | Emergency (ER) | payer OTHER ==
[2017-09-21] MEDS ORDERED: Ketorolac INJ* 60 MG/2 ML VIAL IM ONE (16:57)
[2017-09-21 17:31] VITALS: BP 174/113
--- NOTE | 2017-09-22 06:21 | ED ---
Throat Pain/Nasal Congestion - HPI Summary HPI Summary: Patient is a 51-year-old female presenting to the ED with chief complaint of right lower dental pain over tooth #29 and #30. Both teeth have been broken for several years. She has never had an infection in these 2 teeth. She has had dental infections in the past with no obvious abscess. She endorses swelling which began last evening. Denies any trismus symptoms, dysphagia, odynophagia, sores to the mouth. Denies any fevers, sweats, chills. She states she would like antibiotics and pain control. She has not seen a dentist in several years and states she will follow-up with one soon. Denies any other symptoms at this time. Symptoms are aggravated with chewing and alleviated with nothing. She has been taking ibuprofen and Anbesol [id number] without relief. - History of Current Complaint Chief Complaint: EDDentalPain Time Seen by Provider: 09/21/17 15:05 Hx Obtained From: Patient Onset/Duration: Gradual Onset Severity: Moderate Associated Signs And Symptoms: Negative: Dysphagia, FB Sensation, Drooling, Wheezing Related History: Smoking - Epiglottits Risk Factors Epiglottis Risk Factors: Negative - Allergies/Home Medications Allergies/Adverse Reactions: Allergies Allergy/AdvReac Type Severity Reaction Status Date / Time No Known Allergies Allergy Verified 02/21/17 07:31 Home Medications: Home Medications Levothyroxine TAB* [Synthroid TAB*] 200 mcg PO DAILY 09/21/17 [History Confirmed 09/21/17] amLODIPine TAB* [Norvasc 5 mg TAB*] 5 mg PO DAILY 09/21/17 [History Confirmed ] PMH/Surg Hx/FS Hx/Imm Hx Previously Healthy: Yes Endocrine/Hematology History: Reports: Hx Thyroid Disease - hypothyroid d/t partial thyroidectomy Denies: Hx Diabetes Cardiovascular History: Denies: Hx Congestive Heart Failure, Hx Hypertension, Hx Pacemaker/ICD Respiratory History: Reports: Hx Sleep Apnea GI History: Reports: Hx Irritable Bowel, Hx Obstructive Bowel, Other GI Disorders - cholelithiasis Denies: Hx Cirrhosis, Hx Crohn's Disease, Hx Diverticulosis, Hx Gall Bladder Disease, Hx Gastroesophageal Reflux Disease, Hx Gastrointestinal Bleed, Hx Hiatal Hernia, Hx Jaundice, Hx Ileostomy, Hx Pyloric Stenosis, Hx Ulcer History: Denies: Hx Renal Disease Musculoskeletal History: Reports: Hx Back Problems Sensory History: Reports: Hx Contacts or Glasses Denies: Hx Cataracts, Hx Eye Injury, Hx Eye Prosthesis, Hx Glaucoma, Hx Legally Blind, Hx Macular Degeneration, Hx Vision Problem, Hx Deafness, Hx Hearing Aid, Hx Hearing Problem, Other Sensory Impairments Opthamlomology History: Reports: Hx Contacts or Glasses Denies: Hx Cataracts, Hx Eye Injury, Hx Eye Prosthesis, Hx Glaucoma, Hx Legally Blind, Hx Macular Degeneration, Hx Vision Problem, Other Sensory Impairments Neurological History: Reports: Hx Migraine Psychiatric History: Reports: Hx Depression Denies: Hx Panic Disorder - Cancer History Cancer Type, Location and Year: GOITER REMOVED 2010 - Surgical History Surgery Procedure, Year, and Place: 1968 inguinal hernia, D&C 1999; thyroidectomy x 2 2009; 2010 exploratory Sx, several abdominal surgeries between [id number]--> colon resection Hx Anesthesia Reactions: No - Immunization History Date of Influenza Vaccine: 01/2017 Hx Pertussis Vaccination: No Immunizations Up to Date: No Infectious Disease History: No Infectious Disease History: Denies: Hx Clostridium Difficile, Hx Hepatitis, Hx Tuberculosis - Positive PPD, negative chest X-ray, 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, History Other Infectious Disease, Traveled Outside the [place] in Last 30 Days - Family History Known Family History: Positive: Hypertension, Diabetes, Renal Disease - Social History Occupation: Employed Part-time Lives: Alone Alcohol Use: Occasionally Hx Substance Use: No Substance Use Type: Reports: None Hx Tobacco Use: Yes Smoking Status (MU): Light Every Day Tobacco Smoker Type: Cigarettes Amount Used/How Often: 1/3 ppd Length of Time of Smoking/Using Tobacco: 10 years Have You Smoked in the Last Year: Yes Review of Systems Constitutional: Negative Negative: Fever, Chills, Fatigue Positive: Dental Pain Cardiovascular: Negative Negative: Palpitations, Chest Pain Respiratory: Negative Negative: Shortness Of Breath, Cough Genitourinary: Negative Positive: no symptoms reported, see HPI Skin: Negative Neurological: Negative All Other Systems Reviewed And Are Negative: Yes Physical Exam Triage Information Reviewed: Yes Vital Signs On Initial Exam: Initial Vitals Temp Pulse Resp BP Pulse Ox 98 F 74 16 155/109 98 09/21/17 14:45 09/21/17 14:45 09/21/17 14:45 09/21/17 14:45 09/21/17 14:45 Vital Signs Reviewed: Yes Appearance: Positive: Well-Nourished, Pain Distress Skin: Positive: Warm, Skin Color Reflects Adequate Perfusion Head/Face: Positive: Normal Head/Face Inspection Eyes: Positive: EOMI, ITA, Conjunctiva Clear Dental: Positive: Gross Decay/Caries @ - throughout, Dental Fracture @ - throughout without evidence of abscess. Negative: Bleeding, Oropharynx, Foreign body Respiratory/Lung Sounds: Positive: Clear to Auscultation, Breath Sounds Present Cardiovascular: Positive: Normal, RRR, Pulses are Symmetrical in both Upper and Lower Extremities Musculoskeletal: Positive: Normal, Strength/ROM Intact Neurological: Positive: Speech Normal Psychiatric: Positive: Affect/Mood Appropriate AVPU Assessment: Alert Diagnostics - Vital Signs Vital Signs Temp Pulse Resp BP Pulse Ox 09/21/17 17:21 98.0 F 72 18 174/113 95 09/21/17 15:29 98.3 F 70 16 150/91 97 09/21/17 14:45 98 F 74 16 155/109 98 - Laboratory Lab Statement: Any lab studies that have been ordered have been reviewed, and results considered in the medical decision making process. EENT Course/Dx - Course Course Of Treatment: During the course of treatment, the patient's evaluated for right lower dental pain over #29 and #30. Both teeth are broken. There is swelling to the right lower jaw with no obvious signs of abscess or drainage. I discussed the potential for an abscess under the tooth which we would not be able to visualize. She is placed on penicillin and I have offered Toradol. She states that will not work for her and is asking for an opioid. I have declined this for her, but offered toradol. Prescriptions will be sent. - Diagnoses Provider Diagnoses: Pain, dental Discharge - Sign-Out/Discharge Documenting (check all that apply): Discharge/Admit/Transfer - Discharge Plan Condition: Stable Disposition: HOME Prescriptions: Ketorolac TAB * [Toradol TAB *] 10 mg PO Q6H #16 tab Penicillin VK 500 MG TAB(NF) [Penicillin VK 500 mg Tab(NF)] 500 mg PO QID #28 tab MDD 4 Patient Education Materials: Dental Abscess (ED) Forms: *Work Release Referrals: Bita Gross, PEARL DIVER [Primary Care Provider] - Additional Instructions: Toradol - take 1 tab up to four times daily DO NOT TAKE IBUPROFEN WHILE TAKING THIS MEDICATION you may use tylenol intermittently keflex four times daily x 7 days - Billing Disposition and Condition Condition: STABLE Disposition: HOME
== END 2017-09-21 17:21 | disposition home or self-care (01) ==
LOC: ED 14:28
DX: K08.89 Other specified disorders of teeth and supporting structures (principal); E03.9 Hypothyroidism, unspecified; G43.909 Migraine, unspecified, not intractable, without status migrainosus; F32.9 Major depressive disorder, single episode, unspecified; F17.210 Nicotine dependence, cigarettes, uncomplicated
CPT/HCPCS: 96372; 99281; J1885

== ENCOUNTER 2018-06-19 11:10 | Emergency (ER) | payer OTHER ==
[2018-06-19 11:30] VITALS: BP 153/99
--- NOTE | 2018-06-19 11:56 | UC ---
Head Injury HPI - HPI Summary HPI Summary: 52-year-old female who 52-year-old woman comes in with a chief complaint of a fall at work this morning. She struck her head left arm and left hip. No loss of consciousness. Does have mild photophobia. No nausea or vomiting. No weakness or numbness or difficulty with speech. No double vision no complaint of any facial or jaw pain. Patient has a bruise on her left arm and has pain in the left hip area where she fell. Also does have overall body aches to include some left neck pain. No shortness of breath. - History Of Current Complaint Chief Complaint: UCHeadInjury Stated Complaint: HEAD INJURY Time Seen by Provider: 06/19/18 11:39 Pain Intensity: 7 - Allergies/Home Medications Allergies/Adverse Reactions: Allergies Allergy/AdvReac Type Severity Reaction Status Date / Time No Known Allergies Allergy Verified 02/21/17 07:31 Home Medications: Home Medications Ibuprofen TAB* [Motrin TAB* 800 MG] 800 mg PO Q8H PRN 06/19/18 [History Confirmed 06/19/18] PMH/Surg Hx/FS Hx/Imm Hx Previously Healthy: Yes Endocrine History: Hypothyroidism Cardiovascular History: Hypertension - Surgical History Surgical History: Yes Surgery Procedure, Year, and Place: 1968 inguinal hernia, D&C 1999; thyroidectomy x 2 2009; 2010 exploratory Sx, several abdominal surgeries between [id number]--> colon resection tubal left breast surgery - Family History Known Family History: Positive: Hypertension, Diabetes, Renal Disease - Social History Alcohol Use: Daily Alcohol Amount: 2-3 beers/day Substance Use Type: None Smoking Status (MU): Light Every Day Tobacco Smoker Type: Cigarettes Amount Used/How Often: 1/3 ppd Length of Time of Smoking/Using Tobacco: 10 years Have You Smoked in the Last Year: Yes Household Exposure Type: Cigarettes - Immunization History Most Recent Influenza Vaccination: 2017 Most Recent Tetanus Shot: Within 10 years Most Recent Pneumonia Vaccination: Never Review of Systems All Other Systems Reviewed And Are Negative: Yes Constitutional: Positive: Negative Skin: Positive: Bruising Eyes: Positive: Photophobia ENT: Positive: Negative Respiratory: Positive: Negative Cardiovascular: Positive: Negative Gastrointestinal: Positive: Negative Motor: Positive: Negative Neurovascular: Positive: Negative Musculoskeletal: Positive: Other: - SEE HPI Neurological: Positive: Other - SEE HPI Psychological: Positive: Negative Is Patient Immunocompromised?: No Physical Exam Triage Information Reviewed: Yes Appearance: Well-Appearing, Well-Nourished, Pain Distress - MILD Vital Signs: Initial Vital Signs Temp 98.9 F 06/19/18 11:22 Pulse 66 06/19/18 11:22 Resp 16 06/19/18 11:22 BP 153/99 06/19/18 11:22 Pulse Ox 98 06/19/18 11:22 Vital Signs Reviewed: Yes Eye Exam: Normal Eyes: Positive: Conjunctiva Clear, Other: - PERRLA/EOMI PATIENT REPORTS MILD PHOTOPHOBIA ENT: Positive: Pharynx normal, TMs normal. Negative: Nasal congestion, Nasal drainage Neck exam: Normal Neck: Positive: Supple, Nontender Respiratory: Positive: Lungs clear, Normal breath sounds, No respiratory distress Cardiovascular: Positive: RRR Musculoskeletal: Positive: Other: - Patient is tender to palpation in the left tempal. The orbits and facial bones are nontender to palpation. The mandible is nontender to palpation. No double vision on examination. No hemotympanum. Neurological Exam: Normal Neurological: Positive: Alert, Muscle Tone Normal Psychological Exam: Normal Psychological: Positive: Normal Response To Family, Age Appropriate Behavior Skin: Positive: Other - BRUISE 3CM LEFT FOREARM Head Injury Course/Dx - Course Course Of Treatment: Based on the patient having mild photophobia time diagnosing a concussion. Patient did not lose consciousness she is not nauseous there is no vomiting there is no focal neurologic deficits she is not on blood thinners at this time we are not doing a head CT. I discussed all this with the patient and she felt comfortable not having a head CT at this time. The overall plan is to have the patient off from work for couple of days that she can rest and use Tylenol ibuprofen as needed and also concussion precautions. Patient can follow up with her primary care doctor if not completely improved or if she worsens we discussed going to the emergency department for further evaluation and care. - Differential Dx/Diagnosis Provider Diagnosis: Head injury, Concussion, Contusion of left arm, Contusion of left hip Discharge - Sign-Out/Discharge Documenting (check all that apply): Patient Departure All imaging exams completed and their final reports reviewed: No Studies - Discharge Plan Condition: Stable Disposition: HOME Patient Education Materials: Concussion (ED), Head Injury (ED), Contusion in Adults (ED), Hip Contusion (ED) Forms: *Work Release Referrals: Bita Gross NP [Primary Care Provider] - Additional Instructions: FOLLOW UP WITH YOUR DOCTOR IF NOT COMPLETELY IMPROVED. GO TO THE EMERGENCY DEPARTMENT FOR ANY WORSENING OF YOUR CONDITION; PAIN, WEAKNESS, NUMBNESS, DIFFICULTY WITH VISION OR SPEECH, YOU FEEL ILL OR QUESTIONS OR CONCERNS. - Billing Disposition and Condition Condition: STABLE Disposition: Home
== END 2018-06-19 12:04 | disposition home or self-care (01) ==
LOC: UCEAST 11:10
DX: S06.0X0A Concussion without loss of consciousness, initial encounter (principal); S40.022A Contusion of left upper arm, initial encounter; S70.02XA Contusion of left hip, initial encounter; I10 Essential (primary) hypertension; F17.210 Nicotine dependence, cigarettes, uncomplicated; W01.198A Fall on same level from slipping, tripping and stumbling with subsequent striking against other object, initial encounter; Y92.9 Unspecified place or not applicable; Y99.0 Civilian activity done for income or pay
CPT/HCPCS: 99211; G0463

== ENCOUNTER 2018-09-03 09:30 | Inpatient (IN) | payer OTHER ==
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
[~2018-09-03 09:30] MED LIST: Buffered Lidocaine 1% SYRIN* 1 ML/SYRINGE INTRADERM ONE; Dexamethasone IV* 4 MG/ML 1 ML (4 MG) IV SLOW PU ONE; Famotidine IV* 10 MG/ML 2 ML (20 mg) IV ONE; Lactated Ringers 1000 ML Bag* 1,000 ML IV SCH
[2018-09-03] MEDS ORDERED: KETAMINE HCL* 50 MG/ML 10 ML VIAL ONE (09:45)
[2018-09-03] MEDS ORDERED: fentaNYL* 50 MCG/ML 2 ML VIAL (100 MCG VIAL) ONE ×4 (09:45→14:17)
[2018-09-03] MEDS ORDERED: Midazolam* 1 MG/ML 2 ML VIAL (2 MG) ONE (09:46)
[2018-09-03] MEDS ORDERED: Rocuronium* 10 MG/ML VIAL ONE (09:47)
[2018-09-03] MEDS ORDERED: Propofol* 10 MG/ML 20 ML BTL ONE (09:51)
[2018-09-03] MEDS ORDERED: Ketorolac INJ* 30 MG/ML 1 ML VIAL ONE ×2 (09:53→14:55)
[2018-09-03] MEDS ORDERED: Ondansetron INJ* 2 MG/ML VIAL ONE ×2 (09:53→14:55)
[2018-09-03] MEDS ORDERED: ceFAZolin 2 GM PREMIX in ORs 2 GM/50 ML BAG IVPB ONE (09:58)
[2018-09-03] MEDS ORDERED: Buffered Lidocaine 1% SYRIN* 1 ML/SYRINGE INTRADERM ONE (09:58)
[2018-09-03] MEDS ORDERED: Famotidine IV* 10 MG/ML 2 ML (20 mg) ONE (09:58)
[2018-09-03] MEDS ORDERED: Dexamethasone IV* 4 MG/ML 1 ML (4 MG) ONE (09:58)
[2018-09-03] MEDS ORDERED: Bupivacaine 0.25% W/EPI* 10 ML SDV ONE (11:37)
[2018-09-03] MEDS ORDERED: hydrALAZINE IV* 20 MG/ML VIAL ONE (12:39)
[2018-09-03] MEDS ORDERED: Esmolol* 10 MG/ML 10 ML (100 mg) ONE (12:39)
[2018-09-03] MEDS ORDERED: DiMENhydriNATE IV* 50 MG/ML VIAL IV PUSH PRN (13:09)
[2018-09-03] MEDS ORDERED: fentaNYL* 50 MCG/ML 2 ML VIAL (100 MCG VIAL) IV PRN (13:09)
[2018-09-03] MEDS ORDERED: Naloxone* 0.4 MG/ML 1 ML VIAL IV PRN (13:09)
[2018-09-03] MEDS ORDERED: HYDROmorphone INJ1* 1 MG/ML SYRINGE IV PRN (13:09)
[2018-09-03] MEDS ORDERED: Neostigmine Methylsulfate* 3 MG/3 ML SYRINGE ONE (14:00)
[2018-09-03] MEDS ORDERED: Glycopyrrolate IV* 0.2 MG/ML 1 ML VIAL ONE (14:07)
--- NOTE | 2018-09-03 14:15 | OP ---
Operative Report - Blank - Operative Report Date of Operation: 09/03/18 Note: Brief Operative Note Preop Dx: Symptomatic cholelithiasis Postop Dx: same Procedure: attempted laparoscopy; open cholecystectomy Anesthesia: GET Surgeon: Arlyn Ladies Underwear Operator: NORIS Madison; MARCIE Pruett Fluids: 1100 mL LR EBL: <50 mL Specimen: Gall bladder Drains: none Findings: dictated
[2018-09-03] MEDS ORDERED: Acetaminophen TAB* 325 MG PO PRN (14:31)
[2018-09-03] MEDS ORDERED: Ketorolac INJ* 30 MG/ML 1 ML VIAL IV PUSH PRN (14:32)
[2018-09-03] MEDS ORDERED: Naloxone* 0.4 MG/ML 1 ML VIAL IV PUSH PRN (14:34)
[2018-09-03] MEDS ORDERED: HYDROmorphone PCA* 20 MG/20 ML PCA.SYRING ONE (14:40)
[2018-09-03] MEDS: Lactated Ringers 1000 ML Bag* 1,000 ML IV SCH (14:50)
[2018-09-03] MEDS ORDERED: HYDROmorphone INJ1* 1 MG/ML SYRINGE ONE (14:55)
[2018-09-03] MEDS: Ondansetron INJ* 2 MG/ML VIAL IV PRN (14:56)
[2018-09-03] MEDS ORDERED: HYDROmorphone PCA* 20 MG/20 ML PCA.SYRING PCA SCH (15:00)
[2018-09-03] MEDS ORDERED: Metoclopramide IV* 5 MG/ML 2 ML VIAL ONE (18:28)
[2018-09-03] MEDS ORDERED: Metoclopramide IV* 5 MG/ML 2 ML VIAL IV SLOW PU ONE (19:00)
[2018-09-04] MEDS: Levothyroxine TAB* 100 MCG TAB PO SCH (06:01)
[2018-09-04] MEDS: Heparin VIAL(*) 5000 UNITS/ML VIAL (FIVE THOUSAND) SUBCUT SCH ×3 (06:02→23:15)
[2018-09-04] MEDS: Lactated Ringers 1000 ML Bag* 1,000 ML IV SCH (06:06)
[2018-09-04] MEDS: Ondansetron INJ* 2 MG/ML VIAL IV PRN ×2 (06:17→12:52)
--- NOTE | 2018-09-04 08:37 | PN ---
Progress Note - Progress Note Date of Service: 09/04/18 SOAP: Subjective: Pt seen sangeeta examined. nausea, abdo pain Objective: Temp Pulse Resp BP Pulse Ox 98.1 F 79 18 141/83 97 09/04/18 03:13 09/04/18 07:55 09/04/18 08:00 09/04/18 07:55 09/04/18 08:00 lungs clear abdo: soft/ ND, incisional tenderness dressing bolstered, scant drainage ext wnl Assessment: POD1 open lisette] Plan: pain control OOB dvt proph d/c home tomorrow
[2018-09-04] MEDS: buPROPion TAB* 75 MG PO SCH (08:51)
[2018-09-04] MEDS: Sertraline* 100 MG TAB PO SCH (08:51)
[2018-09-04] MEDS: amLODIPine TAB* 5 MG PO SCH (08:51)
[2018-09-04] MEDS: Hydrocodone/Acetamin 10/325 1 TAB PO PRN ×3 (08:51→23:15)
--- NOTE | 2018-09-04 09:59 | OP ---
CC: Primary care doctor; [facility]* OPERATIVE REPORT: DATE OF OPERATION: 09/03/18 - Inpatient, room 351-01 DATE OF : 63 SURGEON: Bahman Stoddard MD. CHISEL WORKER: NORIS Ng. ANESTHESIOLOGIST: Dr. Chilel. ANESTHESIA: General anesthesia. PRE-OP DIAGNOSES: Cholelithiasis, history of cholangitis. POST-OP DIAGNOSES: Cholelithiasis, history of cholangitis. OPERATIVE PROCEDURE: Attempted laparoscopy and open cholecystectomy. ESTIMATED BLOOD LOSS: Less than 50 cc. FLUIDS: 1100 cc crystalloid fluid given. SPECIMENS: Gallbladder. DRAINS: None. DESCRIPTION OF PROCEDURE: The patient was identified in the preoperative area. She was marked. Consent was signed. She was taken to the operating room and placed on the operating room table in the supine position. Preoperative antibiotics were given. Sequential devices were placed on bilateral lower extremities. General anesthesia was induced. The patient's abdomen was prepped and draped in a standard surgical fashion. Time-out was performed. A subcostal incision was made at the midclavicular line just 2 fingerbreadths below the costal margin on the right. This was deepened down to the fascia, which was elevated and a Veress needle was attempted to be placed in the abdomen. We seemed to get into an appropriate place, but only insufflated approximately 1 L of air. Next, the Veress needle was removed and a 5 mm Optiview was then placed. We could not enter the abdomen with this, rather getting into batsheva of omentum versus musculature. No injury to bowel was appreciated during any of this and I then converted my attention to the left upper quadrant and did a similar incision at [place] point with a similar outcome. Next, we decided to perform an open cholecystectomy. A right-sided subcostal incision was made. This was deepened down into the fascia, which was incised and the musculature as well. It did become apparent that the patient's oblique muscles were brought somewhat more medially secondary to her closure at her surgery 5 years ago and we went through these muscle groups as well and went to the abdomen. Once in the abdomen, we were right at the liver edge. This was sharply lysed off of the anterior abdominal wall, giving us some view into the upper edge of the liver. The inferior aspect of the incision also had significant omental attachments and mesentry to the transverse colon. This was taken down with sharp dissection as well. We continued a difficult sharp dissection along the inferior liver edge until the gallbladder was exposed. We had freed up additional adhesions on the superior aspect of the liver as well. That was attached to the diaphragm so that we could place lap pads behind the liver to bring this gallbladder up into our view. Next, the gallbladder was taken top down in a standard fashion, taking peritoneum and staying along the route of the gallbladder until it tapered down. We did identify stones that were brought up into the body of the gallbladder, with one difficult stone at the neck of the gallbladder that was milked into the body of the gallbladder. Once we had this site, we doubly clipped the cystic duct and then placed a 2-0 Vicryl around it as well. We passed the gallbladder off as specimen. It had not been entered. We then washed , gained hemostasis, and reviewed the abdomen and saw no additional injuries. I made an attempt to get over to the left side, where we had made an attempt at a trocar placement, but we could not break though dense adhesions without significant dissection and this was abandoned. Once hemostasis was achieved, we closed the incision in 2 layers and placed skin jose followed by sterile dressing. The patient was woken up in the OR and transferred to PACU in stable condition. [id number]/[facility] #: [id number] THUY
[2018-09-04] MEDS: Ketorolac INJ* 30 MG/ML 1 ML VIAL IV PUSH SCH ×2 (14:11→19:54)
[2018-09-05] MEDS: Ketorolac INJ* 30 MG/ML 1 ML VIAL IV PUSH SCH ×2 (01:47→08:24)
[2018-09-05] MEDS: Lactated Ringers 1000 ML Bag* 1,000 ML IV SCH (01:50)
[2018-09-05] MEDS: Levothyroxine TAB* 100 MCG TAB PO SCH (05:53)
[2018-09-05] MEDS: Hydrocodone/Acetamin 10/325 1 TAB PO PRN ×2 (05:54→11:09)
[2018-09-05] MEDS: Heparin VIAL(*) 5000 UNITS/ML VIAL (FIVE THOUSAND) SUBCUT SCH (05:55)
[2018-09-05 08:02] VITALS: BP 158/96
[2018-09-05] MEDS ORDERED: Pantoprazole IV* 40 MG IV ONE (08:15)
[2018-09-05] MEDS: Sertraline* 100 MG TAB PO SCH (08:26)
[2018-09-05] MEDS: amLODIPine TAB* 5 MG PO SCH (08:26)
[2018-09-05] MEDS: buPROPion TAB* 75 MG PO SCH (08:28)
[2018-09-05] MEDS ORDERED: Al Hydrox/Mg Hydrox/Simet LIQ* 30 ML UDC PO PRN (08:32)
[2018-09-05] MEDS ORDERED: Al Hydrox/Mg Hydrox/Simet LIQ* 30 ML UDC ONE (08:35)
--- NOTE | 2018-09-05 14:11 | DS ---
AMAENDED REPORT NOW INCLUDES DESIGNATED COSIGNER CC: Bita Gross NP, [facility]; Dr. Keenan, script developer at [facility] in [place], [place] * DISCHARGE SUMMARY: DATE OF ADMISSION: 09/03/18 DATE OF DISCHARGE: 09/05/18 ATTENDING SURGEON: Dr. Bahman Stoddard.* (DICTATED BY NORIS BRANDT) HOSPITAL COURSE: Please refer to admission history and physical and operative note for details. The patient was taken to the operating room on 09/03/18, at which time, an attempt was made at laparoscopy which was unsuccessful. She subsequently underwent an open cholecystectomy with Dr. Stoddard, which was otherwise uneventful. 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 This was changed to oral medications and over the course of postoperative day #1, her vomiting subsided. She was seen in the morning of postoperative day #[address]oddard and was doing much better, both in terms of pain control and oral intake. It was felt that she was okay for discharge on oral pain medication. PHYSICAL EXAM: On the morning of discharge, temperature 98.5, blood pressure 158/98 (she has been somewhat hypertensive throughout her postoperative course and may need some further management upon medical followup), pulse 79, respirations 16, room air saturation 99%. General: Well nourished and in no acute distress. Heart: Regular rate and rhythm. No murmurs. Lungs: Clear to auscultation. No rales or wheezes. Abdomen: Laparoscopic sites and right upper quadrant incision healing well. There is some old sanguineous drainage on the right upper quadrant dressing, but no evidence of active bleeding. There is some bruising along the incision but no significant hematoma. The remainder of the abdomen is soft and nontender. IMPRESSION: Status post attempted laparoscopy with conversion to open cholecystectomy. PLAN: The patient will be discharged today to home in good condition. She will have a followup next week in our office on 09/11/[address] Stoddard. She has a prescription for [place] 5/325, which she will use for stronger pain. She will resume her usual home medications (see reconciliation form). NORIS BRANDT [id number]/[facility] #: [id number] [facility]
== END 2018-09-05 11:40 | disposition home or self-care (01) | DRG 262 ==
LOC: OR 09:30 → SSU 14:16
PROVIDERS: ADMIT Surgery; ATTEND Surgery
PROC: 0FJ44ZZ Inspection of Gallbladder, Percutaneous Endoscopic Approach (ICD-10-PCS; 2018-09-03)
PROC: 0DNU0ZZ Release Omentum, Open Approach (ICD-10-PCS; 2018-09-03)
PROC: 0FT40ZZ Resection of Gallbladder, Open Approach (ICD-10-PCS; principal; 2018-09-03 11:15)
DX: K80.64 Calculus of gallbladder and bile duct with chronic cholecystitis without obstruction (principal); K82.8 Other specified diseases of gallbladder; K66.0 Peritoneal adhesions (postprocedural) (postinfection); I10 Essential (primary) hypertension; F41.9 Anxiety disorder, unspecified; F32.9 Major depressive disorder, single episode, unspecified; E03.9 Hypothyroidism, unspecified; G47.33 Obstructive sleep apnea (adult) (pediatric); F17.210 Nicotine dependence, cigarettes, uncomplicated; Z79.899 Other long term (current) drug therapy
CPT/HCPCS: 88304; A9270-GY; J0360; J0690; J1100; J1170; J1644; J1885; J2250; J2405; J2704; J2710; J2765; J3010